=== PATIENT | female | born 1995 | race Caucasian/White ===

== ENCOUNTER 2017-08-07 17:35 | Emergency (ER) | payer MEDICAID ==
[~2017-08-07] VITALS: Ht 157.5 cm; Wt 59.0 kg
[~2017-08-07 17:35] MED LIST: OLAN5TAB5 PO
[2017-08-07 17:43] VITALS: Ht 157.5 cm; Wt 59.0 kg
[2017-08-07] MEDS ORDERED: VALP250C3 PO (18:28)
--- NOTE | 2017-08-07 18:32 | ERD ---
ER Documentation Chief Complaint Date/Time DATE: 08/07/17 TIME: 18:29 Chief Complaint SENT BY PMD, ON ZYPREXA 5mg, TOO STRONG, NEEDS MED NOT MAKE HER SLEEPY HPI This 21-year-old female presents with a history of bipolar disorder. She is recently been in acute manic episode. She is seen here approximately 2 weeks ago and placed on a hold for acute sallie and discharged home with Zyprexa and outpatient follow-up. She has improvement with the Zyprexa but she is requesting to restart medication she took a few years ago which is valproic acid. She denies homicidal or suicidal in any ideations. The Zyprexa makes her too sleepy and to increases her appetite and makes it difficult for her to work. She denies otherwise any fevers, vomiting, shortness breath or chest pain or seizures disorder ROS All systems reviewed and are negative except as per history of present illness. Medications Home Meds Active Scripts Valproic Acid* (Valproic Acid*) 250 Mg Capsule, 250 MG PO TID, #60 CAP Prov:RADHA BROUSSARD MD 08/07/17 Olanzapine* (Zyprexa*) 5 Mg Tablet, 5 MG PO BID for 14 Days, #28 TAB Prov:CALI RIOS MD 07/22/17 Allergies Allergies: Coded Allergies: No Known Allergy (Unverified , 07/22/17) PMhx/Soc History of Surgery: No Anesthesia Reaction: No Hx Neurological Disorder: No Hx Respiratory Disorders: No Hx Cardiac Disorders: No Hx Psychiatric Problems: Yes (Bipolar ) Hx Miscellaneous Medical Probl: No Hx Alcohol Use: No Hx Substance Use: No Hx Tobacco Use: No Physical Exam Vitals Vital Signs Date Time Temp Pulse Resp B/P Pulse Ox O2 Delivery O2 Flow Rate FiO2 08/07/17 17:43 99.3 110 20 136/78 98 Physical Exam Const: []Alert, talkative, no apparent distress. Head: Atraumatic Eyes: Normal Conjunctiva ENT: Normal External Ears, Nose and Mouth. Neck: Full range of motion..~ No meningismus. Resp: Clear to auscultation bilaterally Cardio: Regular rate and rhythm, no murmurs Abd: Soft, non tender, non distended. Normal bowel sounds Skin: No petechiae or rashes Back: No midline or flank tenderness Ext: No cyanosis, or edema Neur: Awake and alert Psych: Hyperverbal but no apparent distress. Denies homicidal or suicidal ideations Procedures/MDM Patient presents with follow-up for recent acute sallie. She appears improved on Zyprexa and shows no evidence of grave disability, homicidal or suicidal ideations. Patient is requesting switch to valproic acid which she is previously taken without complications. We will start valproic acid 250 mg 3 times a day. She has psychiatric follow-up pending insurance authorization. She is advised to take Zyprexa as needed for acute sallie non-sleeping and she is comfortable with that until she can see her psychiatrist. Departure Diagnosis: Primary Impression: Bipolar affective, manic Condition: Stable Patient Instructions: Bipolar Disorder Additional Instructions: See psychiatrist as scheduled. Recheck otherwise for new or worsening symptoms. RADHA BROUSSARD MD Aug 07, 2017 18:32
== END 2017-08-07 19:19 | disposition home or self-care (01) ==
LOC: FTE 17:35
DX: F31.10 Bipolar disorder, current episode manic without psychotic features, unspecified (principal)
CPT/HCPCS: 99284